=== PATIENT | female | born 1985 | race African-American/Black ===

== ENCOUNTER 2021-05-18 13:19 | Emergency (ER) | payer OTHER ==
[2021-05-18 13:28] VITALS: BMI 43.0
[2021-05-18] MEDS ORDERED: DICYCLOMINE HCL 20 MG TABLET PO ONE (14:17)
[2021-05-18] MEDS ORDERED: ACETAMINOPHEN 1000 MG/100 ML VIAL (NON FORMULARY) IVPB ONE (14:17)
[2021-05-18] MEDS ORDERED: FAMOTIDINE 20 MG/50 ML IVPB 20 MG/50 ML MG IVPB ONE ×2 (14:17→14:33)
[2021-05-18] MEDS ORDERED: SODIUM CHLORIDE 1,000 ML IV STA (14:17)
[2021-05-18] MEDS ORDERED: DICYCLOMINE HCL 10 MG CAPSULE ONE (14:33)
[2021-05-18] MEDS ORDERED: ACETAMINOPHEN INJECTION 100 ML IVPB ONE (14:33)
[2021-05-18 15:20] LABS: BASO % 0.8 % (0-2.0); EOS % 0.4 % (0-4.5); HEMATOCRIT 32.2 % (32.4-45.2); HEMOGLOBIN 10.2 GM/dL (10.7-15.3); LYMPH % 13.1 % (8-40); MCH 20.5 pg (25.7-33.7); MCHC 31.7 g/dl (32.0-36.0); MEAN CELL VOLUME 64.6 fl (80-96); MEAN PLT VOLUME 8.3 fl (7.5-11.1); MONO % 4.3 % (3.8-10.2); NEUT % 81.4 % (42.8-82.8); PH,URINE 7.5 (5.0-8.0); PLATELET COUNT 325 10^3/uL (134-434); RBC 4.98 M/mm3 (3.60-5.2); RDW 20.8 % (11.6-15.6); URINE APPEARANCE CLEAR; URINE BILIRUBIN NEGATIVE (NEGATIVE); URINE COLOR YELLOW; URINE GLUCOSE (UA) NEGATIVE (NEGATIVE); URINE KETONE NEGATIVE (NEGATIVE); URINE LEUK ESTERASE NEGATIVE (NEGATIVE); URINE NITRITE NEGATIVE (NEGATIVE); URINE PROTEIN NEGATIVE (NEGATIVE); URINE UROBILINOGEN 0.2 mg/dL (0.2-1.0); WHITE BLOOD COUNT 7.9 K/mm3 (4.0-10.0)
[2021-05-18 15:25] LABS: HCG,QUALITATIVE URINE Negative
[2021-05-18 15:44] LABS: CALCIUM 9.8 mg/dL (8.5-10.1)
[2021-05-18 15:45] LABS: ALBUMIN 4.3 g/dl (3.4-5.0); BLOOD UREA NITROGEN 9.7 mg/dL (7-18)
[2021-05-18 15:48] LABS: ANISOCYTOSIS 3+; CREATININE 0.9 mg/dL (0.55-1.3); MACROCYTOSIS 1+; PLATELET ESTIMATE NORMAL
[2021-05-18 15:50] LABS: BILIRUBIN,TOTAL 0.5 mg/dL (0.2-1)
[2021-05-18 15:51] LABS: TOT PROT 9.1 g/dl (6.4-8.2)
[2021-05-18 18:11] VITALS: BP 178/78; PULSE 78; TEMP 98.5
== END 2021-05-18 18:13 | disposition home or self-care (01) ==
LOC: JER 13:19
PROC: 3E033NZ Introduction of Analgesics, Hypnotics, Sedatives into Peripheral Vein, Percutaneous Approach (ICD-10-PCS; principal; 2021-05-18)
PROC: 3E033GC Introduction of Other Therapeutic Substance into Peripheral Vein, Percutaneous Approach (ICD-10-PCS; 2021-05-18)
PROC: 3E0337Z Introduction of Electrolytic and Water Balance Substance into Peripheral Vein, Percutaneous Approach (ICD-10-PCS; 2021-05-18)
DX: R10.84 Generalized abdominal pain (principal); K29.00 Acute gastritis without bleeding
CPT/HCPCS: 36415; 76705-TC; 80053; 81003; 83690; 84703; 85025; 87086; 99284-25; J0131

== ENCOUNTER 2022-04-29 08:24 | Emergency (ER) | payer OTHER ==
[2022-04-29 08:30] VITALS: BMI 42.0
[2022-04-29] MEDS ORDERED: MAG HYDROX/AL HYDROX/SIMETH 30 ML UNIT-DOSE CUP PO ONE (08:58)
[2022-04-29] MEDS ORDERED: ONDANSETRON 4 MG/2 ML VIAL IVPUSH ONE (08:58)
[2022-04-29] MEDS ORDERED: ACETAMINOPHEN 1000 MG/100 ML BAG IVPB ONE (08:58)
[2022-04-29] MEDS ORDERED: FAMOTIDINE 20 MG TABLET PO ONE (08:58)
[2022-04-29] MEDS ORDERED: MAG HYDROX/AL HYDROX/SIMETH 30 ML UNIT-DOSE CUP ONE (09:33)
[2022-04-29] MEDS ORDERED: FAMOTIDINE 20 MG TABLET ONE (09:33)
[2022-04-29] MEDS ORDERED: ONDANSETRON *ODT* 4 MG TABLET ONE (09:33)
[2022-04-29] MEDS ORDERED: ACETAMINOPHEN 325 MG TABLET (FP) ONE (09:33)
[2022-04-29] MEDS ORDERED: ACETAMINOPHEN 325 MG TABLET (FP) PO ONE (09:45)
[2022-04-29 09:51] LABS: BASO % 0.7 % (0-2.0); EOS % 0.7 % (0-4.5); HEMATOCRIT 31.4 % (32.4-45.2); HEMOGLOBIN 9.9 GM/dL (10.7-15.3); LYMPH % 14.6 % (8-40); MCH 21.2 pg (25.7-33.7); MCHC 31.6 g/dl (32.0-36.0); MEAN CELL VOLUME 67.1 fl (80-96); MEAN PLT VOLUME 8.3 fl (7.5-11.1); MONO % 5.6 % (3.8-10.2); NEUT % 78.4 % (42.8-82.8); PLATELET COUNT 317 10^3/uL (134-434); RBC 4.67 M/mm3 (3.60-5.2); RDW 20.4 % (11.6-15.6); WHITE BLOOD COUNT 7.1 K/mm3 (4.0-10.0)
[2022-04-29 09:52] LABS: PH,URINE 6.5 (5.0-8.0); URINE APPEARANCE CLEAR; URINE BILIRUBIN NEGATIVE (NEGATIVE); URINE COLOR YELLOW; URINE GLUCOSE (UA) NEGATIVE (NEGATIVE); URINE KETONE NEGATIVE (NEGATIVE); URINE LEUK ESTERASE NEGATIVE (NEGATIVE); URINE NITRITE NEGATIVE (NEGATIVE); URINE PROTEIN NEGATIVE (NEGATIVE); URINE UROBILINOGEN 0.2 mg/dL (0.2-1.0)
[2022-04-29 10:20] LABS: ALBUMIN 4.1 g/dl (3.4-5.0); BLOOD UREA NITROGEN 14.1 mg/dL (7-18); CALCIUM 9.4 mg/dL (8.5-10.1)
[2022-04-29 10:24] LABS: CREATININE 0.9 mg/dL (0.55-1.3)
[2022-04-29 10:25] LABS: BILIRUBIN,TOTAL 0.5 mg/dL (0.2-1); TOT PROT 8.2 g/dl (6.4-8.2)
[2022-04-29 10:57] VITALS: BP 150/84; PULSE 84; RESP 14; TEMP 98.3
[2022-04-29 12:30] LABS: ANISOCYTOSIS 0; MACROCYTOSIS 0
== END 2022-04-29 10:58 | disposition home or self-care (01) ==
LOC: JER 08:24
DX: R10.13 Epigastric pain (principal)
CPT/HCPCS: 36415; 80053; 81003; 84703; 85025; 87086; 99283-25